=== PATIENT | female | born 1985 | race Caucasian/White ===

== ENCOUNTER 2019-05-06 08:45 | Day surgery (SDC) | payer OTHER ==
[~2019-05-06] VITALS: Ht 170.2 cm; Wt 120.2 kg
--- NOTE | ~2019-05-06 | O ---
[facility] [place] [address] OPERATIVE REPORT Name: DUNIA LOVE Dereje Room #: 150-6 [facility]#: [id number] Admission: 05/06/19 Attend Phys: Ozzy Mendieta MD Discharge: Date of : 87 Report #: [id number] THIS REPORT FOR: //name// CC: Eunice Mendieta DATE OF SERVICE: 05/06/2019 PREOPERATIVE DIAGNOSES: Chronic tonsillitis with tonsillar hypertrophy. POSTOPERATIVE DIAGNOSES: Chronic tonsillitis with tonsillar hypertrophy. OPERATIVE PROCEDURE: Tonsillectomy. ANESTHESIA: General endotracheal. DESCRIPTION OF PROCEDURE: The patient was taken to the operating room and placed in supine position. General anesthesia was induced by endotracheal intubation. Once adequate general anesthesia was obtained, the patient was draped in a sterile manner. A Pat-Shaquille mouth gag was placed in the patient's mouth and the tongue was deviated upward. The right tonsil was grasped and deviated toward midline. An incision was placed in the anterior tonsillar pillar using the Bovie electrocautery and a plane between tonsillar capsule and tonsillar fossa was established. Dissection was carried out in this plane using the Bovie and hemostasis was achieved during the dissection. Dissection was carried out from superior to the inferior. The inferior pole was incised and posterior tonsillar mucosa was incised. The tonsil was removed and sent to pathology. Left tonsil was removed in exactly the same manner. The area was then irrigated with normal saline. Hemostasis was verified in the tonsillar beds. The mouth gag was removed. The patient tolerated the procedure well. Blood loss was approximately 10 mL. The patient was then awoken and taken to the recovery room in stable condition for postoperative monitoring. By: [id number] Ozzy Mendieta MD /nt
--- NOTE | 2019-05-06 08:44 | H ---
[facility] [place] [address] HISTORY AND PHYSICAL Name: DUNIA LOVE Dereje Room #: PRE [facility] M.R.#: [id number] Admission: Attend Phys: Ozzy Mendieta MD Discharge: Date of : 87 Report #: [id number] THIS REPORT FOR: //name// CC: Eunice Mendieta PREOPERATIVE HISTORY AND PHYSICAL Her procedure is scheduled for 05/06/2019. HISTORY OF PRESENT ILLNESS: The patient has been having problems with her tonsils. She says that after up to 25, she had tonsillitis almost constantly. Then, she would only get it occasionally, but over the last couple of years, she has had more problems. She has upper respiratory infection in mid 03/2019 that caused swelling of the tonsils with severe sore throat and she has had persistent swelling since then despite treatment with multiple courses of antibiotics. PAST MEDICAL HISTORY: Otherwise, not significant. MEDICATIONS: Vitamins. ALLERGIES: She is allergic to BACTRIM. PHYSICAL EXAMINATION: Her nose was clear. Her tonsils were 3+ enlarged with pustules on both sides. She had deep crypts, but no debris. She had upper cervical adenopathy. IMPRESSION: Chronic tonsillitis with tonsillar hypertrophy. PLAN: Tonsillectomy. <ELECTRONICALLY SIGNED> By: Ozzy Mendieta MD 05/06/19 0844 [id number] Ozzy Mendieta MD /nt
[~2019-05-06 08:45] MED LIST: ACETAMINOP160 MG/5 M PO; BISOPROLOL FUMAR5 M1 PO; CALCIUM WITH M1 EACH PO; CALTRATE 600+D1 EAC1 PO; CENTRUM CHEWAB1 EAC2 PO; CENTRUM SILVER1 EAC4 PO; CRANBERRY500 M2 PO; FEOSOL325 M1 PO; GARLIC1 EACH PO; GARLIC500 M1 PO; PRILOSEC 20 MG20 MG PO; PROBIOTIC1 EAC1 PO; ZYRTEC10 M5 PO
[2019-05-06 09:39] VITALS: BP 136/78
[2019-05-06 11:49] VITALS: BP 136/78
--- NOTE | 2019-05-07 16:07 | PATH ---
[facility] [address] [place] [address] PATHOLOGY RPT PROCEDURE Name: DUNIA BRENNAN Dereje Room #: [facility] M.R.#: [id number] Admission: 05/06/19 Date of : 87 Discharge: 05/06/19 Report #: [id number] Path Case #: [id number] [facility] Accession Number: [id number] . 01 Material submitted: . PART A: tonsil - RIGHT TONSIL. Modifiers: right PART B: tonsil - LEFT TONSIL. Modifiers: left . 01 Clinical history: . Tonsillar hypertrophy, chronic tonsillitis . 02 Diagnosis: A. Tonsil, right tonsil, tonsillectomy: - Acutely inflamed epithelium overlying lymphoid tissue with reactive hyperplasia. . B. Tonsil, left tonsil, tonsillectomy: - Acutely inflamed epithelium overlying lymphoid tissue with reactive hyperplasia. (IUV:soraya; 05/07/2019) QMS 05/07/2019 1434 Local . 02 Electronically signed: . Oralia Plascencia MD, Pathologist NPI- [id number] . 01 Gross description: . A. The specimen is received in formalin labeled "Dunia Brennan, right tonsil" and consists of a pink-leon tonsil weighing 5 g and measuring 3.2 x 2.1 x 1.5 cm. Sectioning reveals crypts filled with yellow-leon material and corporate representative sections are submitted in A1. . B. The specimen is received in formalin labeled "Dunia Brennan, left tonsil" and consists of a pink-leon tonsil weighing 6 g and measuring 3.3 x 2.1 x 1.5 cm. Sectioning reveals crypts filled with yellow-leon material and corporate representative sections are submitted in B1. (SDY; 05/06/2019) SYU/SYU 05/06/2019 1644 Local . 02 Pathologist provided ICD-10: J35.1 . 02 CPT . 974261, [id number] Specimen Comment: A courtesy copy of this report has been sent to [phone] Specimen Comment: [phone] [address] PATHOLOGY RPT PROCEDURE Name: DUNAI BRENNAN Dereje Room #: [facility] M.R.#: [id number] Admission: 05/06/19 Date of : 87 Discharge: 05/06/19 Report #: [id number] Path Case #: [id number] Specimen Comment: Report sent to / DR LAMA Performed at: [address] [facility], [place], [place] [id number] MD Carlitos Feliciano MD Phone: [phone] Performed at: [address] [facility] [id number] MD Oralia Plascencia MD Phone: [phone]
== END 2019-05-06 13:55 | disposition home or self-care (01) ==
LOC: OR 08:45 → TBA 08:45 → OR 09:20
DX: J35.01 Chronic tonsillitis (principal); I10 Essential (primary) hypertension; J45.909 Unspecified asthma, uncomplicated; Z98.890 Other specified postprocedural states; Z79.899 Other long term (current) drug therapy; Z88.2 Allergy status to sulfonamides; Z88.8 Allergy status to other drugs, medicaments and biological substances
CPT/HCPCS: 50101; 62110; 62900; 70005